=== PATIENT | female | born 1980 | race Caucasian/White ===

== ENCOUNTER 2018-10-18 13:13 | Outpatient (CLI) | payer BC | END 2018-10-18 13:14 | disposition home or self-care (01) | LOC: DTY/OP 13:13 | PROVIDERS: ATTEND Surgery | DX: E66.01 Morbid (severe) obesity due to excess calories (principal) | CPT/HCPCS: 97802 ==

== ENCOUNTER 2018-12-07 09:00 | Inpatient (IN) | payer BC ==
[2018-12-08 16:30] VITALS: BMI 44.0
[2018-12-14] MEDS ORDERED: Bupivacaine/Epinephrine 0.25% 30 ML VIAL ONE (10:39)
[2018-12-14] MEDS ORDERED: Heparin 5,000 UNITS/ML VIAL ONE (10:57)
[2018-12-14] MEDS ORDERED: Scopolamine 1.5 mg/72 hour Patch ONE (10:57)
[2018-12-14] MEDS ORDERED: Fentanyl 100 MCG/2 ML VIAL ONE ×3 (11:18→13:05)
[2018-12-14] MEDS ORDERED: Midazolam HCl 2 mg/2 ml Vial ONE (11:29)
[2018-12-14] MEDS ORDERED: Promethazine HCl 25 MG/ML VIAL IM PRN ×3 (12:25→15:14)
[2018-12-14] MEDS ORDERED: Ondansetron HCl/PF 4 MG/2 ML Vial IVP PRN (12:25)
[2018-12-14] MEDS ORDERED: Promethazine HCl 25 MG/ML VIAL SLOW IVP PRN (12:25)
[2018-12-14] MEDS ORDERED: Meperidine HCl/PF 25 MG/ML VIAL ONE (13:11)
[2018-12-14] MEDS ORDERED: HYDROmorphone 0.5 MG/0.5 ML SYRINGE ONE ×3 (13:56→14:37)
[2018-12-14] MEDS ORDERED: Zolpidem Tartrate 5 MG TAB PO PRN (13:58)
[2018-12-14] MEDS ORDERED: diphenhydrAMINE 50 MG/ML VIAL IM PRN (13:58)
[2018-12-14] MEDS ORDERED: Naloxone HCl 0.4 mg/ml Vial IV PRN (13:58)
[2018-12-14] MEDS ORDERED: diphenhydrAMINE 50 MG/ML VIAL IVP PRN ×2 (13:58→15:14)
[2018-12-14] MEDS ORDERED: diphenhydrAMINE 25 MG CAP PO PRN (13:58)
[2018-12-14] MEDS ORDERED: fentaNYL Citrate/PF 2,000 MCG in Sodium Chloride 0.9% 60 ML IV PRN (13:58)
[2018-12-14] MEDS ORDERED: Ondansetron PF 4 MG/2 ML Vial IVP PRN ×2 (13:58→15:14)
[2018-12-14] MEDS ORDERED: Communication Order-Pharmacy FS SCH (14:00)
[2018-12-14] MEDS ORDERED: hydrALAZINE 20 MG/ML VIAL SLOW IVP PRN (15:14)
[2018-12-14] MEDS ORDERED: Dextrose 5% in Water 1,000 ML IV PRN (15:14)
[2018-12-14] MEDS ORDERED: Dextrose 50% Abboject 50 ML SYRINGE SLOW IVP PRN (15:14)
[2018-12-14] MEDS ORDERED: Sodium Chloride 0.9% (PF) 10 ML VIAL FS PRN (15:28)
[2018-12-14] MEDS: D5 1/2 NS w/20 mEq KCL 1,000 ML IV SCH (15:53)
--- NOTE | 2018-12-14 19:43 | OP ---
DATE OF PROCEDURE: 12/14/2018 PREOPERATIVE DIAGNOSIS: Morbid obesity with a body mass index of 44. POSTOPERATIVE DIAGNOSES: 1. Morbid obesity with a body mass index of 44. 2. Paraesophageal hiatal hernia. PROCEDURES PERFORMED: 1. Laparoscopic sleeve gastrectomy with [place] staple line reinforcements and 38-[place] bougie. 2. Laparoscopic hiatal hernia repair without fundoplication. ANESTHESIA: General. ESTIMATED BLOOD LOSS: 50 mL. COMPLICATIONS: None. FINDINGS: Normal postoperative EGD. DESCRIPTION OF PROCEDURE: The patient was taken to the operating room and laid supine on the operating room table. After general anesthetic was obtained, the OG tube was used to decompress the stomach. The abdomen was prepped and draped in a sterile fashion. Left subcostal 5 mm Optiview trocar was placed in usual fashion without injury and high-flow pneumoperitoneum was obtained. Right subcostal 5 mm port as well as two lower abdominal 12 mm ports were placed under direct visualization. A 5 mm incision was made at the xiphoid and Lidia was used to raise the liver off the GE junction. Short gastrics were taken down from mid body of stomach to left louise of diaphragm. Left louise, posterior fundus, and angle of His were completely dissected. Short gastrics, the left louise, and angle of His were completely dissected exposing a hiatal hernia. Circumferential dissection of the esophagus was performed from the medial and lateral approach. The GE junction was brought back into the abdominal cavity. A 38 bougie was brought in, its tip left in the antrum of the stomach. Multiple loads of an Cement stapling device were used to perform the sleeve. The first was a green load. The rest were all gold loads. They all have [place] staple line reinforcements. Stomach was completely transected at the angle of His. There was no bleeding on the staple line. Stomach was removed from the left abdominal incision. This fascial defect closed using GraNee needle and 0 Vicryl tie. One Ethibond suture in the tie knot system was used to close the crural defect posteriorly. EGD scope was passed through esophagus and stomach to the level of duodenum without obstruction. There was no bleeding on the inside staple line. There was no evidence of air leakage through the staple line. EGD scope was used to decompress the stomach was full and removed. Lidia retractors removed under direct visualization without bleeding. All ports were removed under direct visualization without bleeding, pneumoperitoneum was let down. The Vicryl was used to close the fascial defect from the left abdominal incisions. All incisions were irrigated and closed using 4-0 Monocryl and Dermabond. The patient was sent to Recovery in stable condition. All instrument counts, needle counts, and lap counts were correct. Job ID: [id number]
[2018-12-14] MEDS ORDERED: Enoxaparin Sodium 40 MG/0.4 ML SYRINGE SC SCH (21:00)
[2018-12-14] MEDS: Acetaminophen 1,000 MG in Premix Bag 1 BAG IVPB SCH (21:10)
[2018-12-15] MEDS: Acetaminophen 1,000 MG in Premix Bag 1 BAG IVPB SCH ×3 (01:27→14:13)
[2018-12-15] MEDS: D5 1/2 NS w/20 mEq KCL 1,000 ML IV SCH ×2 (01:28→14:13)
[2018-12-15 05:01] LABS: #Lymphocytes 1.4 thou/uL (1.20-3.40); #Monocytes 0.7 thou/uL (0.11-0.59); #Neutrophils 7.6 thou/uL (1.40-6.50); %Basophils 0.1 % (0.0-1.0); %Eosinophils 0.1 % (0.0-10.0); %Lymphocytes 14.4 % (21.0-51.0); %Monocytes 7.3 % (0.0-10.0); %Neutrophils 78.1 % (42.0-75.0); Hemoglobin 12.5 g/dL (12.0-16.0); Mean Corpuscular HGB CONC 33.9 g/dL (32.0-36.0); Mean Corpuscular Hemoglobin 31.1 pg (27.0-31.0); Mean Corpuscular Volume 91.5 fL (78.0-98.0); Mean Platelet Volume 6.8 fL (7.4-10.4); Platelet Count 319 thou/uL (130-400); RBC Distribution Width 12.3 % (11.5-14.5); Red Blood Cell (RBC) Count 4.01 mill/uL (4.20-5.40); White Blood Cell (WBC) Count 9.7 thou/uL (4.8-10.8)
[2018-12-15 05:20] LABS: Anion Gap 10 mmol/L (10-20); BUN (Urea Nitrogen) 5 mg/dL (7.0-18.7); Calc. Creatinine Clearance 189 mL/min (70-130); Calcium 8.6 mg/dL (7.8-10.44); Carbon Dioxide 24 mmol/L (22-29); Chloride 106 mmol/L (98-107); Estimated GFR-MDRD Greater than 90; Glucose 124 mg/dL (70-105); Potassium 4.7 mmol/L (3.5-5.1); Sodium 135 mmol/L (136-145)
[2018-12-15] MEDS ORDERED: Pantoprazole 40 MG VIAL IVP SCH (09:00)
[2018-12-15] MEDS: Hydrocodone-Acetamin 15 ML UDCUP PO PRN ×2 (09:29→14:05)
--- NOTE | 2018-12-15 11:47 | DIS ---
DATE OF ADMISSION: 12/14/2018 DATE OF DISCHARGE: 12/15/2018 ADMISSION DIAGNOSES: Morbid obesity, hiatal hernia. DISCHARGE DIAGNOSES: Morbid obesity, hiatal hernia. PROCEDURES: Laparoscopic sleeve gastrectomy and hiatal hernia repair by Dr. Astudillo without complications. CONDITION ON DISCHARGE: Stable. STAFF: Neto Astudillo MD HOSPITAL COURSE: On postop day 1, the patient is doing well. She is ambulatory. Her pain is controlled. She is tolerating a liquid diet. She will be discharged home. Prescriptions for Lortab Elixir, Zofran, pantoprazole already sent to her pharmacy. She will follow up with me in 2 weeks. Job ID: [id number]
[2018-12-15 15:35] VITALS: BP 104/68; TEMP 98.1
== END 2018-12-15 16:05 | disposition home or self-care (01) | DRG 621 ==
LOC: SURG A 12-14 10:15 → SJJU 12-14 14:00
PROVIDERS: ADMIT Surgery; ATTEND Surgery
PROC: 0DB64Z3 Excision of Stomach, Percutaneous Endoscopic Approach, Vertical (ICD-10-PCS; principal; 2018-12-14)
PROC: 0BQT4ZZ Repair Diaphragm, Percutaneous Endoscopic Approach (ICD-10-PCS; 2018-12-14)
PROC: 0DJ08ZZ Inspection of Upper Intestinal Tract, Via Natural or Artificial Opening Endoscopic (ICD-10-PCS; 2018-12-14)
DX: E66.01 Morbid (severe) obesity due to excess calories (principal); K44.9 Diaphragmatic hernia without obstruction or gangrene; Z68.41 Body mass index [BMI] 40.0-44.9, adult
CPT/HCPCS: 36415; 80048; 85025; 94760; C9113; J0131; J0690; J1170; J1644; J1650; J2175; J2250; J3010; J3490; Q0163

== ENCOUNTER 2018-12-08 07:45 | Outpatient (CLI) | payer BC ==
[2018-12-08 17:07] LABS: #Eosinphils 0.1 thou/uL (0.0-0.7); #Lymphocytes 2.2 thou/uL (1.20-3.40); #Monocytes 0.7 thou/uL (0.11-0.59); #Neutrophils 5.5 thou/uL (1.40-6.50); %Basophils 0.3 % (0.0-1.0); %Eosinophils 0.8 % (0.0-10.0); %Lymphocytes 26.1 % (21.0-51.0); %Neutrophils 64.8 % (42.0-75.0); Hemoglobin 13.2 g/dL (12.0-16.0); Mean Corpuscular HGB CONC 35.5 g/dL (32.0-36.0); Mean Corpuscular Hemoglobin 32.1 pg (27.0-31.0); Mean Corpuscular Volume 90.4 fL (78.0-98.0); Mean Platelet Volume 6.7 fL (7.4-10.4); Platelet Count 328 thou/uL (130-400); RBC Distribution Width 12.2 % (11.5-14.5); White Blood Cell (WBC) Count 8.4 thou/uL (4.8-10.8)
[2018-12-08 17:16] LABS: BHCG - Serum Negative (NEGATIVE); Pregs Control Background? CLEAR/WHITE (CLR/WHITE); Pregs Control Bar Appear? YES (CONTROL BAR)
--- NOTE | 2018-12-08 17:16 | RAD ---
EXAM: Chest 2 views: HISTORY: Chest pain COMPARISON: 05/16/2014 FINDINGS: There is a normal-sized cardiomediastinal silhouette. There is no evidence of consolidation, mass, or pleural effusion. The bones are unremarkable. IMPRESSION: No evidence of acute cardiopulmonary disease
[2018-12-08 17:29] LABS: ALT (SGPT) 12 U/L (8-55); AST (SGOT) 17 U/L (5-34); Albumin 4.6 g/dL (3.5-5.0); Alkaline Phosphatase 71 U/L (40-150); Anion Gap 13 mmol/L (10-20); BUN (Urea Nitrogen) 16 mg/dL (7.0-18.7); Bilirubin, Direct 0.1 mg/dL (0.1-0.3); Bilirubin, Total 0.3 mg/dL (0.2-1.2); Calc. Creatinine Clearance 0 mL/min (70-130); Calcium 9.5 mg/dL (7.8-10.44); Carbon Dioxide 25 mmol/L (22-29); Chloride 103 mmol/L (98-107); Estimated GFR-MDRD 84; Globulin 2.2 g/dL (2.4-3.5); Glucose 80 mg/dL (70-105); Potassium 4.3 mmol/L (3.5-5.1); Protein, Total 6.8 g/dL (6.0-8.3); Sodium 137 mmol/L (136-145)
--- NOTE | 2018-12-11 16:46 | EKG ---
Test Reason : Blood Pressure : / mmHG Vent. Rate : 066 BPM Atrial Rate : 066 BPM P-R Int : 160 ms QRS Dur : 084 ms QT Int : 390 ms P-R-T Axes : 044 031 020 degrees QTc Int : 408 ms Normal sinus rhythm Normal ECG Confirmed by MISAEL STODDARD ([id number]) on 12/11/2018 4:46:22 PM Referred By: MILAGRO Confirmed By:MISAEL STODDARD
== END 2018-12-08 07:46 | disposition home or self-care (01) ==
LOC: LABBT 07:45
PROVIDERS: ATTEND Surgery
DX: Z01.818 Encounter for other preprocedural examination (principal)
CPT/HCPCS: 71046; 80053; 80076; 83036; 84703; 85025; 93005; 93010